=== PATIENT | male | born 1995 | race Caucasian/White ===

== ENCOUNTER 2017-09-20 10:51 | Outpatient (CLI) | payer BC ==
--- NOTE | 2017-09-20 13:28 | RAD ---
TWO VIEWS CHEST: 09/20/2017 HISTORY: Dyspnea. COMPARISON: None. FINDINGS: There is no pneumothorax, pleural fluid, focal consolidation, or alveolar edema. The heart and media stinal contours are unremarkable. IMPRESSION: No acute findings. POS: [facility]
== END 2017-09-20 10:52 | disposition home or self-care (01) ==
LOC: RAD 10:51
PROVIDERS: ATTEND Internal Medicine
DX: R06.00 Dyspnea, unspecified (principal)
CPT/HCPCS: 36415; 71046; 82785; 85025

== ENCOUNTER 2019-02-26 03:30 | Emergency (ER) | payer BC | END 2019-02-26 05:20 | disposition home or self-care (01) | LOC: ERS 03:30 | DX: F10.129 Alcohol abuse with intoxication, unspecified (principal); F41.9 Anxiety disorder, unspecified; F32.9 Major depressive disorder, single episode, unspecified | CPT/HCPCS: 99284 ==